=== PATIENT | male | born 1965 | race African-American/Black ===

== ENCOUNTER → 2020-01-17 | Outpatient (CLI) | payer MEDICAID, OTHER ==
[2014-05-28 15:00] VITALS: BP 113/73
[~2020-01-17] MED LIST: ATOR40TA PO; HYDR-2145 PO; LATA7.5D OP; LISI-130 PO; MULT-735 PO; NAPR-514 PO; PROP20TA PO; SILD100T PO; TRAM100T2 PO; [UNRECOGNIZED DRUG - CODE] PO
--- NOTE | 2020-01-17 14:07 | PDOC1 ---
INITIAL PAIN CONSULT DATE OF SERVICE: DOS: DATE: 01/17/20 TIME: 13:59 CHIEF COMPLAINT: Chief Complaint: Neck and right upper extremity pain HISTORY OF PRESENT ILLNESS: 54-year-old male presents with history of pain base the neck and right upper extremity for approximately 16 years after injury at work when a box fell on his head. Patient reports before that he was having no significant pain but after that the pain began in the base the neck and right upper extremity and is there today as well. Patient reports over the years he has had physical therapy and some occupational therapy for many years on and off nothing recently not within the last 4 or 5years he is also taking tramadol naproxen and lisinopril the naproxen and the tramadol seem to help the pain but only by about 10%. Patient reports the pain is worse with activity using his right upper extremity and is very weak has been dropping items with his right hand frequently patient reports the pain is constant sharp stabbing throbbing and shooting in the right upper extremity base the neck is tingling with numbness in the hand on the right side and the wrist patient reports radiating in the right upper extremity is worse at night also with repetitive motions reaching over his head with his right arm any weightbearing or support or lifting or repetitive motions with the right arm is aching quality base the neck as well. Patient rates his disability of 0-10 10 being the worst is a 10 with recreation 9 with him home responsibilities social activity occupation sexual behavior light support activities and self-care activities. Patient did have a MRI of the cervical spine dated December 20, 2019 showing minimal trace annular disc bulge versus minimal thickening of the posterior longitudinal ligament at C3-4 resulting in mild central canal stenosis. Patient reports no overt motor loss but is and fatigability of the right upper extremity. PAST MEDICAL HISTORY: PMH: Hypertension, arthritis, gastroesophageal reflux, hyperlipidemia, depression PREVIOUS SURGERIES: Past Surgical Hx: No previous surgery CURRENT MEDICATIONS: Current Meds: See patients chart ALLERGIES; Allergies: Coded Allergies: No Known Drug Allergies (Unverified , 05/28/14) FAMILY HISTORY: Family Hx: Hypertension SOCIAL HISTORY: Social Hx: Patient does not corky alcohol does not smoke not use any illegal illicit recreational drugs is single lives locally in [facility] and reports he is currently between employers REVIEW OF SYSTEMS: ROS: Positive for those items mentioned in history of present illness, all systems are reviewed, otherwise negative, is complete full and well-documented on patient's chart PHYSICAL EXAM: VS: Blood pressure is 129/84 pulse 68 respirations 16 temperature is 98.3 F height is 5 foot 9 inches weight is 194 pounds PE: PHYSICAL EXAMINATION: GENERAL: The patient is awake, alert, oriented, appropriate, very pleasant demeanor HEENT: Shows normocephalic, atraumatic. Extraocular movements are intact and symmetrical. Oral cavity: Mucous membranes moist and pink. Dentition is intact. NECK: Shows anterior throat supple without palpable lymphadenopathy noted. Swallow reflex symmetrical. CHEST: Shows normal on inspection. Breath sounds are clear bilaterally, no rales rhonchi wheezes. HEART: Shows S1, S2 clear. No murmurs auscultated. ABDOMEN: Soft, nontender, nondistended, obese. No palpable organomegaly is noted. No rebound or guarding demonstrated. BACK: Shows spine grossly in the midline. Normal-appearing cervical lordotic curvature. Cervical paraspinous muscles show symmetrical on inspection, with palpation shows some moderate tenderness diffusely in the inferior aspect of the cervical paraspinous muscles are more on the right than the left without asymmetry with atrophy hypertrophy no trigger points no radiation of pain demonstrated. Patient shows full rotation motion cervical spine both laterally greater than 45 degrees closer to 90 degrees right and left some mild guarding when turning far to the right but performs the function fully. Full extension full forward flexion performed out significant increase in pain. There is slightly increased thoracic kyphosis, some minor flattening of the lumbar lordotic curvature. Lumbar paraspinous muscles show symmetrical on inspection, on palpation shows some moderate tenderness diffusely throughout the upper, middle and lower distribution of the paraspinous muscles without specific trigger points, without radiation of pain. The patient has good rotational motion of the lumbar spine, both laterally as well as extension and flexion without significant difficulty. No tenderness over the spinous processes, sacrum or sacroiliac regions. EXTREMITIES: Upper extremities show deep tendon reflexes 2+ in the biceps and tricep tendons. Motor exam is 3 on a scale of 5 with right hip strength, biceps and triceps flexion and 4/5 on the left. Peripheral pulses are 2+ posterior tibial. No peripheral edema is noted bilaterally. Upper extremities are warm and dry to touch, equal in color and appearance. Shoulder shrug is strong and intact without loss of strength on resistance but with some significant pain in the base of the neck on the right side radiating into the anterior and lateral aspect of the deltoid on the right shoulder. Left side is nontender. This is true with abduction of the shoulder 90 degrees with resistance bilaterally. SKIN: Shows warm and dry, good turgor. No edema. No sores, rashes or bruising throughout. IMPRESSION: Impression: 54-year-old male with long history pain base of neck right upper extremity with radicular qualities MRI scan cervical spine as noted Hypertension Arthritis Plan: Options were discussed with the patient including conservative medical management physical therapies interventional techniques. Patient has a extremely high deductible for any interventional techniques he would like to try most conservative measures as possible. We will try Medrol Dosepak patient was given prescription as well as instructions and side effects to be aware of with the medication, and will follow-up once this is completed. Patient reports he is searching for new/better insurance coverage and once this is obtained would be interested in interventional techniques in the future. Patient will follow up at this time on as-needed basis EVRA FRIAS MD Jan 17, 2020 14:07
== END ==
LOC: PNCL 12:21
PROVIDERS: ATTEND Anesthesiology
DX: M54.2 Cervicalgia (principal); M79.601 Pain in right arm; I10 Essential (primary) hypertension; M19.90 Unspecified osteoarthritis, unspecified site; K21.9 Gastro-esophageal reflux disease without esophagitis; E78.5 Hyperlipidemia, unspecified; F32.9 Major depressive disorder, single episode, unspecified; Z79.899 Other long term (current) drug therapy; Z82.49 Family history of ischemic heart disease and other diseases of the circulatory system
CPT/HCPCS: G0463